=== PATIENT | female | born 2000 | race African-American/Black ===

== ENCOUNTER 2019-10-27 09:18 | Emergency (ER) | payer OTHER ==
[2019-10-27 09:45] VITALS: BP 129/86; PULSE 95; TEMP 98.4; BMI 22.3
--- NOTE | 2019-10-27 10:17 | PDOC ---
History of Present Illness - General Chief Complaint: Vaginal Bleeding Stated Complaint: VAGINAL BLEEDING Time Seen by Provider: 10/27/19 10:03 History Source: Patient Exam Limitations: No Limitations - History of Present Illness Initial Comments: 10/27/19 10:13 19-year-old female history of anemia, , 6 weeks GA, 1 termination of , LMP September 15, 2019 presents complaining of vaginal spotting since last night with right-sided back pain and left lower pelvic pain. Denies chest pain, shortness of breath, palpitations, dizziness, urinary complaints or any other symptoms. Has an OB appointment scheduled for November 04, 2019. ROS: GENERAL/CONSTITUTIONAL: No fever, chills, weakness, dizziness HEAD, EYES, EARS, NOSE AND THROAT: No changes in vision, No ear pain or discharge, No sore throat CARDIOVASCULAR: No chest pain RESPIRATORY: No shortness of breath or cough GASTROINTESTINAL: Lower abdominal cramping, denies nausea, vomiting, diarrhea or constipation GENITOURINARY: Vaginal bleeding, no dysuria MUSCULOSKELETAL: No neck or back pain SKIN: No rash NEUROLOGIC: No headache, vertigo, loss of consciousness, or loss of sensation PE: GENERAL: well-appearing, NAD HEAD: NCAT EYES: Pupils equal, round and reactive to light, sclera anicteric, conjunctiva clear ENT: pharynx: no erythema, no exudate, uvula midline NECK: supple CHEST: nontender RESP: clear, no w/r/r CARDIO: rrr, no m/g/r ABD: +BS, soft, nontender, non distended : os closed, no CMT, no adnexal tenderness to palpation, no blood in the vault noted BACK: no midline spinal ttp, no CVAT EXTREMITIES: Normal range of motion, no edema NEUROLOGICAL: Normal speech, normal gait SKIN: Warm, Dry Past History - Past Medical History Allergies/Adverse Reactions: Allergies Allergy/AdvReac Type Severity Reaction Status Date / Time No Known Allergies Allergy Verified 10/27/19 09:41 Home Medications: Ambulatory Orders NK [No Known Home Medication] 10/27/19 Anemia: Yes COPD: No - Immunization History Immunization Up to Date: Yes - Psycho Social/Smoking Cessation Hx Smoking History: Never smoked Information on smoking cessation initiated: No Hx Alcohol Use: No Drug/Substance Use Hx: No *Physical Exam - Vital Signs Last Vital Signs Temp Pulse Resp BP Pulse Ox 98.4 F 95 H 17 129/86 99 10/27/19 09:41 10/27/19 09:41 10/27/19 09:41 10/27/19 09:41 10/27/19 09:41 ED Treatment Course - LABORATORY CBC & Chemistry Diagram: 10/27/19 11:11 10/27/19 11:11 Medical Decision Making - Medical Decision Making 10/27/19 10:59 19-year-old female, 6 weeks GA presents complaining of pelvic and back cramping with vaginal spotting since last night. Pelvic exam: os closed, no CMT tenderness, no blood noted in the vault Will send CBC, BMP, type and screen, beta hCG, UA Transvaginal ultrasound Reassess 10/27/19 11:00 10/27/19 12:35 Beta hCG < 1.0 Canceled transvaginal ultrasound and UA given patient is not and denies urinary symptoms Discussed these results with patient, patient states she did a home test 1 week ago which tested positive Advised patient to keep her OB appointment scheduled for November 04, 2019 Patient declines acetaminophen or ibuprofen for pelvic cramping Return precautions discussed Discharge - Discharge Information Problems reviewed: Yes Clinical Impression/Diagnosis: Pelvic cramping Condition: Stable Disposition: HOME - Follow up/Referral - Patient Discharge Instructions Additional Instructions: Alternate between acetaminophen 650 mg every 6 hours and ibuprofen 600 mg every 6 hours as needed for pain Keep your OB appointment scheduled for November 04, 2019 If you develop worsening pelvic pain, fever, chills, vaginal discharge, vaginal bleeding return to ED - Post Discharge Activity Work/Back to School Note: Back to Work
--- NOTE | 2019-10-27 11:32 | PDOC ---
*Physical Exam - Vital Signs Last Vital Signs Temp Pulse Resp BP Pulse Ox 98.4 F 95 H 17 129/86 99 10/27/19 09:41 10/27/19 09:41 10/27/19 09:41 10/27/19 09:41 10/27/19 09:41 ED Treatment Course - LABORATORY CBC & Chemistry Diagram: 10/27/19 11:11 10/27/19 11:11 Medical Decision Making - Medical Decision Making 10/27/19 11:31 19-year-old female, 6 weeks GA presents complaining of pelvic and back cramping with vaginal spotting since last night. Pt seen by Midlevel Provider under my direct supervision Pt interviewed and examined ON exam: Pt is awake and alert Answers questions appropriately RRR CTA Pelvic exam per PASHA Bledsoe Ancillary studies reviewed Labs reveal no I agree with plan as outlined by Midlevel Provider Received a call from the lab about a discrepant Type and Screen Pt called back to have labs repeated to be sure blood type O+ and BHCG negative Discharge - Discharge Information Problems reviewed: Yes Clinical Impression/Diagnosis: Pelvic cramping Condition: Stable Disposition: HOME - Follow up/Referral - Patient Discharge Instructions Additional Instructions: Alternate between acetaminophen 650 mg every 6 hours and ibuprofen 600 mg every 6 hours as needed for pain Keep your OB appointment scheduled for November 04, 2019 If you develop worsening pelvic pain, fever, chills, vaginal discharge, vaginal bleeding return to ED - Post Discharge Activity Work/Back to School Note: Back to Work
[2019-10-27 11:56] LABS: INR 1.1 (0.83-1.09)
[2019-10-27 12:01] LABS: ALBUMIN 3.8 g/dl (3.4-5.0); BILIRUBIN,TOTAL 0.2 mg/dL (0.2-1); BLOOD UREA NITROGEN 8.3 mg/dL (7-18); CREATININE 0.8 mg/dL (0.55-1.3); TOT PROT 7.2 g/dl (6.4-8.2)
[2019-10-27 14:39] LABS: BASO % 0.2 % (0-2.0); EOS % 4.2 % (0-4.5); HEMATOCRIT 38.9 % (32.4-45.2); HEMOGLOBIN 12.5 GM/dL (10.7-15.3); LYMPH % 39.3 % (8-40); MCH 25.6 pg (25.7-33.7); MCHC 32.2 g/dl (32.0-36.0); MEAN CELL VOLUME 79.6 fl (80-96); MEAN PLT VOLUME 9.7 fl (7.5-11.1); MONO % 5.3 % (3.8-10.2); PLATELET COUNT 313 K/MM3 (134-434); RBC 4.88 M/mm3 (3.60-5.2); RDW 15.9 % (11.6-15.6); WHITE BLOOD COUNT 7.5 K/mm3 (4.0-10.0)
== END 2019-10-27 12:51 | disposition home or self-care (01) ==
LOC: JER 09:18
DX: R10.2 Pelvic and perineal pain (principal)
CPT/HCPCS: 36415; 80053; 84702; 85025; 85610; 85730; 86850; 86900; 86901; 99283-25

== ENCOUNTER 2019-10-27 16:35 | Emergency (ER) | payer OTHER ==
[2019-10-27 16:58] VITALS: BP 121/68; PULSE 84; TEMP 98.6; BMI 22.3
--- NOTE | 2019-10-27 17:02 | PDOC ---
Rapid Medical Evaluation Chief Complaint: Revisit, Lab Variance Time Seen by Provider: 10/27/19 16:51 Medical Evaluation: Allergies Allergy/AdvReac Type Severity Reaction Status Date / Time No Known Allergies Allergy Verified 10/27/19 09:41 10/27/19 16:57 I have performed a brief in-person evaluation of this patient. The patient presents with a chief complaint of: Pt seen this am reporting she was ~6 weeks (+ home preg test) w/ abd pain. Labs sent and showed beta <1. When pt was discharged, there was found to be a discrepancy with T&S. T&S on prior visit was O+, but was A+ on past labs prior to today. Pt called and told to return for rpt blood work Pertinent physical exam findings:stable I have ordered the following:T&S, beta, upreg The patient will proceed to the ED for further evaluation. 10/27/19 15:43 Notes from prior visit: Rosa Corado from the laboratory at [id number] called to inform me that 10 years ago the patient had a type and screen which resulted A+ however today's type and screen resulted O+ Given this discrepancy I called the patient on her cell phone # [phone] and advised her to return for a repeat type and screen and beta hCG. Patient verbalized understanding. Discharge Disposition - Diagnosis Evaluation by medical service required - Referrals - Patient Instructions - Post Discharge Activity
--- NOTE | 2019-10-27 17:20 | PDOC ---
History of Present Illness - General Chief Complaint: Revisit, Lab Variance Stated Complaint: LABS VARIENCE Time Seen by Provider: 10/27/19 16:51 History Source: Patient - History of Present Illness Timing/Duration: other Past History - Past Medical History Allergies/Adverse Reactions: Allergies Allergy/AdvReac Type Severity Reaction Status Date / Time No Known Allergies Allergy Verified 10/27/19 09:41 Home Medications: Ambulatory Orders NK [No Known Home Medication] 10/27/19 Anemia: Yes COPD: No - Immunization History Immunization Up to Date: Yes - Psycho Social/Smoking Cessation Hx Smoking History: Never smoked Information on smoking cessation initiated: No Hx Alcohol Use: No Drug/Substance Use Hx: No Review of Systems - Review of Systems Constitutional: No: Chills, Fever ABD/GI: No: Nausea, Vomiting *Physical Exam - Vital Signs Last Vital Signs Temp Pulse Resp BP Pulse Ox 98.6 F 84 17 121/68 100 10/27/19 16:53 10/27/19 16:53 10/27/19 16:53 10/27/19 16:53 10/27/19 16:53 - Physical Exam General Appearance: Yes: Appropriately Dressed. No: Apparent Distress HEENT: positive: Normal Voice Neck: positive: Supple Respiratory/Chest: negative: Respiratory Distress Integumentary: positive: Dry, Warm Neurologic: positive: Fully Oriented, Alert, Normal Mood/Affect Medical Decision Making - Medical Decision Making 10/27/19 17:18 19 F returns for rpt blood work. Pt was seen in ED this am when pt reported + home test, ~6 weeks by dates and was c/o cramps and vag bleed. Labs showed beta <1 and pt was discharged. After dc, pt was contacted 2/2 discrepancy in T&S. Per labs, pt's cord blood at here at [facility] was A+ and T& S this am was O+. Pt was told to return for rpt T&S. Pt well deborah and stable. Rpt labs pending 10/27/19 19:07 Beta < 1 w/ neg upreg. T&S 0+ on this visit per lab, similar to this am. Stable for discharge Discharge - Discharge Information Problems reviewed: Yes Clinical Impression/Diagnosis: Evaluation by medical service required Condition: Good Disposition: HOME - Follow up/Referral - Patient Discharge Instructions Additional Instructions: Your test is negative both on blood and urine You blood type is 0+ this am and 0+ on this visit - Post Discharge Activity
== END 2019-10-27 19:40 | disposition home or self-care (01) ==
LOC: JERFT 16:35
DX: R10.2 Pelvic and perineal pain (principal); M54.89 Other dorsalgia; N93.8 Other specified abnormal uterine and vaginal bleeding
CPT/HCPCS: 36415; 80053; 84702; 84703; 85025; 85610; 85730; 86850; 86900; 86901; 99281-25; 99283-25

== ENCOUNTER 2021-01-28 09:22 | Emergency (ER) | payer OTHER ==
[2021-01-28 09:38] VITALS: BP 111/77; PULSE 98; TEMP 97; BMI 25.7
[2021-01-28] MEDS ORDERED: LACTATED RINGERS SOLUTION 1000 ML INFUS.BAG IV ONE (09:59)
[2021-01-28 10:23] LABS: BASO % 0.4 % (0-2.0); EOS % 6.9 % (0-4.5); HEMATOCRIT 33.7 % (32.4-45.2); HEMOGLOBIN 11.4 GM/dL (10.7-15.3); LYMPH % 25.8 % (8-40); MCH 27.3 pg (25.7-33.7); MCHC 33.8 g/dl (32.0-36.0); MEAN CELL VOLUME 80.8 fl (80-96); MEAN PLT VOLUME 8.8 fl (7.5-11.1); MONO % 4.4 % (3.8-10.2); NEUT % 62.5 % (42.8-82.8); PH,URINE 7.5 (5.0-8.0); PLATELET COUNT 283 K/MM3 (134-434); RBC 4.17 M/mm3 (3.60-5.2); RDW 16.2 % (11.6-15.6); URINE APPEARANCE CLEAR; URINE BILIRUBIN NEGATIVE (NEGATIVE); URINE COLOR YELLOW; URINE GLUCOSE (UA) NEGATIVE (NEGATIVE); URINE KETONE TRACE (NEGATIVE); URINE LEUK ESTERASE NEGATIVE (NEGATIVE); URINE NITRITE NEGATIVE (NEGATIVE); URINE PROTEIN NEGATIVE (NEGATIVE); WHITE BLOOD COUNT 8.7 K/mm3 (4.0-10.0)
[2021-01-28 10:59] LABS: CALCIUM 9.1 mg/dL (8.5-10.1)
[2021-01-28 11:00] LABS: ALBUMIN 3.3 g/dl (3.4-5.0)
[2021-01-28 11:04] LABS: CREATININE 0.7 mg/dL (0.55-1.3)
[2021-01-28 11:06] LABS: TOT PROT 7.3 g/dl (6.4-8.2)
[2021-01-28 11:11] LABS: BILIRUBIN,TOTAL 0.2 mg/dL (0.2-1)
[2021-01-28] MEDS ORDERED: ACETAMINOPHEN 1000 MG/100 ML VIAL (NON FORMULARY) IVPB ONE (11:33)
[2021-01-28] MEDS ORDERED: SODIUM CHLORIDE 1,000 ML IV STA (11:33)
[2021-01-28] MEDS ORDERED: ACETAMINOPHEN INJECTION 100 ML IVPB ONE (11:41)
[2021-01-28 11:51] LABS: POTASSIUM 3.8 mmol/L (3.5-5.1)
== END 2021-01-28 12:17 | disposition home or self-care (01) ==
LOC: JER 09:22
PROC: 3E0333Z Introduction of Anti-inflammatory into Peripheral Vein, Percutaneous Approach (ICD-10-PCS; principal; 2021-01-28)
PROC: 3E0337Z Introduction of Electrolytic and Water Balance Substance into Peripheral Vein, Percutaneous Approach (ICD-10-PCS; 2021-01-28)
DX: R51.9 Headache, unspecified (principal); R09.81 Nasal congestion
CPT/HCPCS: 36415; 76801-TC; 80053; 81003; 84702; 85025; 87086; 99284-25; J0131

== ENCOUNTER 2022-09-14 17:04 | Emergency (ER) | payer OTHER ==
[2022-09-14 17:30] VITALS: RESP 18; BMI 25.3
[2022-09-14] MEDS ORDERED: ACETAMINOPHEN 1000 MG/100 ML BAG IVPB ONE (18:19)
[2022-09-14] MEDS ORDERED: LACTATED RINGERS SOLUTION 1000 ML INFUS.BAG IV ONE (18:19)
[2022-09-14] MEDS ORDERED: ACETAMINOPHEN INJECTION 100 ML IVPB ONE (18:22)
[2022-09-14 18:41] LABS: VENOUS BASE EXCESS -2.2 mmol/L (-2-2); VENOUS PCO2 39.8 mmHg (38-52); VENOUS PH 7.374 (7.310-7.410)
[2022-09-14] MEDS ORDERED: FLUCONAZOLE 150 MG TABLET PO ONE ×2 (18:54→19:45)
[2022-09-14] MEDS ORDERED: DOXYCYCLINE HYCLATE 100 MG CAPSULE PO ONE ×2 (18:54→19:45)
[2022-09-14 19:11] LABS: BASO % 0.1 % (0-2.0); EOS % 1.1 % (0-4.5); HEMATOCRIT 37.9 % (32.4-45.2); HEMOGLOBIN 12.8 GM/dL (10.7-15.3); LYMPH % 8.3 % (8-40); MCH 30.5 pg (25.7-33.7); MCHC 33.8 g/dl (32.0-36.0); MEAN CELL VOLUME 90.3 fl (80-96); MEAN PLT VOLUME 9.2 fl (7.5-11.1); MONO % 4.4 % (3.8-10.2); NEUT % 86.1 % (42.8-82.8); PLATELET COUNT 182 10^3/uL (134-434); RDW 12.7 % (11.6-15.6); WHITE BLOOD COUNT 14.8 K/mm3 (4.0-10.0)
[2022-09-14 19:12] LABS: CHLORIDE 105 mmol/L (98-107); SODIUM 138 mmol/L (136-145)
[2022-09-14 19:14] LABS: ALBUMIN 3.6 g/dl (3.4-5.0); ANION GAP 10 MMOL/L (8-16); BLOOD UREA NITROGEN 6.5 mg/dL (7-18); CALCIUM 8.9 mg/dL (8.5-10.1); CO2 23 mmol/L (21-32); GLUCOSE,RANDOM 84 mg/dL (74-106)
[2022-09-14 19:14] LABS: EPI CELLS 9 /uL (0-25.1); HYALINE CASTS 2 /uL (0-3.1); PH,URINE 5.5 (5.0-8.0); URINE APPEARANCE Error; URINE BACTERIA 116 /uL (0-1359); URINE BILIRUBIN NEGATIVE (NEGATIVE); URINE COLOR DK YELLOW; URINE GLUCOSE (UA) NEGATIVE (NEGATIVE); URINE KETONE 1+ (NEGATIVE); URINE LEUK ESTERASE 1+ (NEGATIVE); URINE NITRITE NEGATIVE (NEGATIVE); URINE PROTEIN 1+ (NEGATIVE); URINE RBC 10 /uL (0-23.9); URINE WBC 125 /uL (0-25.8)
[2022-09-14 19:17] LABS: CREATININE 0.7 mg/dL (0.55-1.3); SGOT/AST 15 U/L (15-37); SGPT/ALT 15 U/L (13-61)
[2022-09-14 19:19] LABS: BILIRUBIN,TOTAL 0.5 mg/dL (0.2-1); TOT PROT 6.8 g/dl (6.4-8.2)
[2022-09-14 19:20] LABS: ALK PHOS 57 U/L (45-117); INR 1.37 (0.83-1.09); PROTHROMBIN TIME (PATIENT) 15.8 SEC (9.7-13.0)
[2022-09-14 19:23] LABS: ACTIVATED PTT 36.4 SECONDS (25.2-36.5)
[2022-09-14] MEDS ORDERED: LIDOCAINE HCL/PF 1% SDV 5ML VIAL ONE (19:46)
[2022-09-14] MEDS ORDERED: cefTRIAXone SODIUM 1 GM VIAL ONE (19:46)
[2022-09-14 22:09] VITALS: BP 105/69; PULSE 84; TEMP 98
== END 2022-09-15 02:59 | disposition home or self-care (01) ==
LOC: JER 17:04
PROC: 3E0333Z Introduction of Anti-inflammatory into Peripheral Vein, Percutaneous Approach (ICD-10-PCS; principal; 2022-09-14)
PROC: 3E02329 Introduction of Other Anti-infective into Muscle, Percutaneous Approach (ICD-10-PCS; 2022-09-14)
DX: R50.9 Fever, unspecified (principal); R05.1 Acute cough
CPT/HCPCS: 0241U-QW; 36415; 71045-TC-FY; 74177-TC; 76830-TC; 80053; 81003; 82553; 82803; 83605; 84484; 84703; 85025; 85610; 85730; 87040; 87086; 87491; 87591; 99285-25; Q9967

== ENCOUNTER 2024-08-09 02:09 | Emergency (ER) | payer OTHER ==
[2024-08-09 02:18] VITALS: BP 106/67; PULSE 80; RESP 18; TEMP 97.9; BMI 21.6
== END 2024-08-09 03:59 | disposition home or self-care (01) ==
LOC: JER 02:09
DX: J11.1 Influenza due to unidentified influenza virus with other respiratory manifestations (principal); R50.9 Fever, unspecified; R05.9 Cough, unspecified; R09.81 Nasal congestion; Z20.822 Contact with and (suspected) exposure to COVID-19
CPT/HCPCS: 0241U-QW; 87651; 99283-25